=== PATIENT | male | born 1990 | race African-American/Black ===

== ENCOUNTER 2017-10-05 14:55 | Inpatient (IN) | payer SELFPAY ==
[2017-10-05] MEDS ORDERED: ONDANSETRON 4 MG TAB.RAPDIS PO ONE (15:52)
[2017-10-05] MEDS ORDERED: NORMAL SALINE 1000 ML 1,000 ML IV ONE ×2 (16:02→18:41)
[2017-10-05] MEDS ORDERED: FAMOTIDINE INJ/PF 20 MG/2 ML SDV IV ONE (16:02)
--- NOTE | 2017-10-05 16:04 | ER Document Report ---
ED GI/ - General Chief Complaint: Nausea/Vomiting Stated Complaint: FLU LIKE SYMPTOMS Time Seen by Provider: 10/05/17 15:42 Notes: The patient is a 27-year-old male who presents with nausea and vomiting for the past 3 days. He is also feeling a burning sensation after vomiting. 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 Patient denies hematemesis, diarrhea, constipation, abdominal pain, fevers, urinary symptoms, chest pain or shortness of breath. TRAVEL OUTSIDE OF THE [place] IN LAST 30 DAYS: No - Related Data Allergies/Adverse Reactions: No Known Allergies Allergy (Verified 10/05/17 15:08) Past Medical History - General Information source: Patient - Social History Smoking Status: Never Smoker Chew tobacco use (# tins/day): No Frequency of alcohol use: None Drug Abuse: None Family History: Reviewed & Not Pertinent Patient has suicidal ideation: No Patient has homicidal ideation: No Pulmonary Medical History: Reports: Hx Asthma Renal/ Medical History: Denies: Hx Peritoneal Dialysis - Immunizations Hx Diphtheria, Pertussis, Tetanus Vaccination: Yes Review of Systems - Review of Systems Notes: REVIEW OF SYSTEMS: CONSTITUTIONAL: -fevers, -chills EENT: -eye pain, -difficulty swallowing, -nasal congestion CARDIOVASCULAR:-chest pain, -syncope. RESPIRATORY: -cough, -SOB GASTROINTESTINAL: -abdominal pain, +nausea, +vomiting, -diarrhea GENITOURINARY: -dysuria, -hematuria MUSCULOSKELETAL: -back pain, -neck pain SKIN: -rash or skin lesions. HEMATOLOGIC: -easy bruising or bleeding. LYMPHATIC: -swollen, enlarged glands. NEUROLOGICAL: -altered mental status or loss of consciousness, -headache, - neurologic symptoms PSYCHIATRIC: -anxiety, -depression. ALL OTHER SYSTEMS REVIEWED AND NEGATIVE. Physical Exam - Vital signs Vitals: Temp Pulse Resp BP Pulse Ox 97.7 F 127 H 16 127/74 H 98 10/05/17 15:07 10/05/17 15:07 10/05/17 15:07 10/05/17 15:07 10/05/17 15:07 - Notes Notes: PHYSICAL EXAMINATION: GENERAL: Well-appearing, well-nourished and in no acute distress. HEAD: Atraumatic, normocephalic. EYES: Pupils equal round and reactive to light, extraocular movements intact, sclera anicteric, conjunctiva are normal. ENT: nares patent, oropharynx clear without exudates. Moist mucous membranes. NECK: Normal range of motion, supple without lymphadenopathy LUNGS: Breath sounds clear to auscultation bilaterally and equal. No wheezes rales or rhonchi. HEART: Tachycardia. ABDOMEN: Soft, nontender, normoactive bowel sounds. No guarding, no rebound. No masses appreciated. EXTREMITIES: Normal range of motion, no pitting or edema. No cyanosis. NEUROLOGICAL: Cranial nerves grossly intact. Normal speech, normal gait. Normal sensory and motor exams. PSYCH: Normal mood, normal affect. SKIN: Warm, Dry, normal turgor, no rashes or lesions noted. Course - Re-evaluation Re-evalutation: 10/05/17 17:26 Call from lab. Glucose is 600 and CO2 is 8. Pt has new-onset DKA on labs and urine. Insulin gtt started. Patient will be moved to the main ER for further evaluation and treatment. I have greeted and performed a rapid initial assessment of this patient. A comprehensive ED assessment and evaluation of the patient, analysis of test results and completion of the medical decision making process will be conducted by additional ED providers. - Vital Signs Vital signs: Temp Pulse Resp BP Pulse Ox 97.7 F 127 H 16 127/74 H 98 10/05/17 15:07 10/05/17 15:07 10/05/17 15:07 10/05/17 15:07 10/05/17 15:07 - Laboratory Result Diagrams: 10/05/17 16:27 10/05/17 16:27 Laboratory results interpreted by me: 10/05/17 10/05/17 10/05/17 16:09 16:27 16:27 WBC 10.8 H RBC 5.78 H Seg Neutrophils % 89.3 H Lymphocytes % 6.1 L Absolute Neutrophils 9.7 H Potassium 5.2 H Chloride 92 L Carbon Dioxide 8 L* Anion Gap 39 H BUN 28 H Creatinine 1.90 H Est GFR ( Amer) 51 L Est GFR (Non-Af Amer) 42 L Glucose 658 H* Direct Bilirubin 0.6 H AST 178 H ALT 323 H Total Protein 9.5 H Albumin 5.4 H Urine Protein 30 H Urine Glucose (UA) >=500 H Urine Ketones 80 H Urine Blood MODERATE H Discharge - Discharge Clinical Impression: DKA (diabetic ketoacidoses) Condition: Stable Disposition: ADMITTED INPATIENT
[2017-10-05 16:41] LABS: ABSOLUTE LYMPHOCYTES (AUTO) 0.7 10^3/uL (0.5-4.7); ABSOLUTE MONOCYTES (AUTO) 0.5 10^3/uL (0.1-1.4); ABSOLUTE NEUT (AUTO) 9.7 10^3/uL (1.7-8.2); BASOPHILS % (AUTO) 0.3 % (0-2); HEMATOCRIT 50.9 % (37.9-51.0); HEMOGLOBIN 16.6 g/dL (13.5-17.0); HGB HCT DIFFERENCE -1.1; LYMPHOCYTES % (AUTO) 6.1 % (13-45); MEAN CORPUSCULAR HEMOGLOBIN 28.6 pg (27.0-33.4); MEAN CORPUSCULAR HGB CONC 32.5 g/dL (32.0-36.0); MEAN CORPUSCULAR VOLUME 88 fl (80-97); MONOCYTES % (AUTO) 4.3 % (3-13); RED BLOOD COUNT 5.78 10^6/uL (4.35-5.55); SEGMENTED NEUTROPHILS % (AUTO) 89.3 % (42-78); WHITE BLOOD COUNT 10.8 10^3/uL (4.0-10.5)
[2017-10-05 17:05] LABS: ALANINE AMINOTRANSFERASE 323 U/L (21-72); ALBUMIN 5.4 g/dL (3.5-5.0); ALKALINE PHOSPHATASE 111 U/L (38-126); ASPARTATE AMINO TRANSFERASE 178 U/L (17-59); BILIRUBIN,DIRECT 0.6 mg/dL (0.0-0.4); BILIRUBIN,TOTAL 0.7 mg/dL (0.2-1.3); BLOOD UREA NITROGEN 28 mg/dL (7-20); CALCIUM 9.7 mg/dL (8.4-10.2); CHLORIDE 92 mmol/L (98-107); LIPASE 113.1 U/L (23-300); POTASSIUM 5.2 mmol/L (3.6-5.0); TOTAL PROTEIN 9.5 g/dL (6.3-8.2)
[2017-10-05 17:16] LABS: GLUCOSE 658 mg/dL (75-110)
[2017-10-05 17:21] LABS: SODIUM 138.7 mmol/L (137-145)
[2017-10-05 17:28] LABS: ANION GAP 39 (5-19); CARBON DIOXIDE 8 mmol/L (22-30)
[2017-10-05] MEDS ORDERED: INSULIN REG, HUMAN 100 UNIT/ML 3 ML VIAL (PYX) IV ONE (17:31)
[2017-10-05 17:36] LABS: APPEARANCE,URINE CLEAR; BILIRUBIN,URINE NEGATIVE (NEGATIVE); GLUCOSE, URINE >=500 mg/dL (NEGATIVE); KETONES,URINE 80 mg/dL (NEGATIVE); LEUKOCYTE ESTERASE,URINE NEGATIVE (NEGATIVE); NITRITE,URINE NEGATIVE (NEGATIVE); PROTEIN,URINE 30 mg/dL (NEGATIVE); URINE SPECIFIC GRAVITY 1.026; UROBILINOGEN,URINE NEGATIVE mg/dL (<2.0)
[2017-10-05] MEDS: NORMAL SALINE 1000 ML 1,000 ML IV PRN ×2 (17:36→17:54)
--- NOTE | 2017-10-05 17:49 | ER Document Report ---
ED General - General Chief Complaint: Nausea/Vomiting Stated Complaint: FLU LIKE SYMPTOMS Time Seen by Provider: 10/05/17 15:42 Mode of Arrival: Ambulatory Information source: Patient Notes: 27-year-old male with no previous past medical history presents with complaints of increased thirst urination generalized malaise. Patient believes he has a sore throat. Notes symptoms started yesterday TRAVEL OUTSIDE OF THE [place] IN LAST 30 DAYS: No - HPI Onset: Yesterday Onset/Duration: Sudden Quality of pain: Achy Severity: Mild Pain Level: 1 Associated symptoms: Body/muscle aches, Nausea, Vomiting Exacerbated by: Denies Relieved by: Denies Similar symptoms previously: No Recently seen / treated by doctor: No - Related Data Allergies/Adverse Reactions: No Known Allergies Allergy (Verified 10/05/17 15:08) Home Medications: Current Home Medications No Home Medications 10/05/17 [History] Past Medical History - General Information source: Patient - Social History Smoking Status: Never Smoker Cigarette use (# per day): No Chew tobacco use (# tins/day): No Smoking Education Provided: No Frequency of alcohol use: None Drug Abuse: None Family History: Reviewed & Not Pertinent Patient has suicidal ideation: No Patient has homicidal ideation: No Pulmonary Medical History: Reports: Hx Asthma Renal/ Medical History: Denies: Hx Peritoneal Dialysis - Immunizations Hx Diphtheria, Pertussis, Tetanus Vaccination: Yes Review of Systems - Review of Systems Notes: REVIEW OF SYSTEMS: CONSTITUTIONAL : Denies fever, chills, or sweats. Denies recent illness. Admits to increased thirst EENT: Denies eye, ear, throat, or mouth pain or symptoms. Denies nasal or sinus congestion or discharge. Denies throat, tongue, or mouth swelling or difficulty swallowing. CARDIOVASCULAR: Denies chest pain. Denies palpitations or racing or irregular heart beat. Denies ankle edema. RESPIRATORY: Denies cough, cold, or chest congestion. Denies shortness of breath, difficulty breathing, or wheezing. GASTROINTESTINAL: D admits nausea vomiting GENITOURINARY: Admits to increased urination MUSCULOSKELETAL: Denies back or neck pain or stiffness. Denies joint pain or swelling. SKIN: Denies rash, lesions or sores. HEMATOLOGIC : Denies easy bruising or bleeding. LYMPHATIC: Denies swollen, enlarged glands. NEUROLOGICAL: Denies confusion or altered mental status. Denies passing out or loss of consciousness. Denies dizziness or lightheadedness. Denies headache. Denies weakness or paralysis or loss of use of either side. Denies problems with gait or speech. Denies sensory loss, numbness, or tingling. Denies seizures. PSYCHIATRIC: Denies anxiety or stress. Denies depression, suicidal ideation, or homicidal ideation. ALL OTHER SYSTEMS REVIEWED AND NEGATIVE. Dictation was performed using [employer] voice recognition software PHYSICAL EXAMINATION: GENERAL: Well-appearing, well-nourished and in no acute distress. HEAD: Atraumatic, normocephalic. EYES: Pupils equal round and reactive to light, extraocular movements intact, sclera anicteric, conjunctiva are normal. ENT: Nares patent, oropharynx clear without exudates. Moist mucous membranes. NECK: Normal range of motion, supple without lymphadenopathy LUNGS: Breath sounds clear to auscultation bilaterally and equal. No wheezes rales or rhonchi. HEART: Tachycardia ABDOMEN: Soft, nontender, nondistended abdomen. No guarding, no rebound. No masses appreciated. Musculoskeletal: Normal range of motion, no pitting or edema. No cyanosis. NEUROLOGICAL: Cranial nerves grossly intact. Normal speech, normal gait. Normal sensory, motor exams PSYCH: Normal mood, normal affect. SKIN: Warm, Dry, normal turgor, no rashes or lesions noted. Physical Exam - Vital signs Vitals: Temp Pulse Resp BP Pulse Ox 97.7 F 127 H 16 127/74 H 98 10/05/17 15:07 10/05/17 15:07 10/05/17 15:07 10/05/17 15:07 10/05/17 15:07 Course - Re-evaluation Re-evalutation: 10/06/17 00:25 Patient is a new onset diabetic who is in DiaBeta ketoacidosis. He was given IV fluids was started on insulin drip, patient was admitted to the hospitalist service for further care - Vital Signs Vital signs: Temp Pulse Resp BP Pulse Ox 99.5 F 103 H 46 H 127/83 H 93 10/05/17 20:54 10/05/17 20:54 10/05/17 21:00 10/05/17 20:54 10/05/17 21:00 - Laboratory Result Diagrams: 10/05/17 16:27 10/05/17 22:40 Laboratory results interpreted by me: 10/05/17 10/05/17 10/05/17 16:09 16:27 16:27 WBC 10.8 H RBC 5.78 H Seg Neutrophils % 89.3 H Lymphocytes % 6.1 L Absolute Neutrophils 9.7 H Potassium 5.2 H Chloride 92 L Carbon Dioxide 8 L* Anion Gap 39 H BUN 28 H Creatinine 1.90 H Est GFR ( Amer) 51 L Est GFR (Non-Af Amer) 42 L Glucose 658 H* Direct Bilirubin 0.6 H AST 178 H ALT 323 H Total Protein 9.5 H Albumin 5.4 H Urine Protein 30 H Urine Glucose (UA) >=500 H Urine Ketones 80 H Urine Blood MODERATE H Critical Care Note - Critical Care Note Total time excluding time spent on procedures (mins): 46 Comments: 46 minutes of critical care time spent in direct contact evaluating and reevaluating the patient, treating symptoms, reviewing labs and studies and speaking with family and consultants excluding any procedures Discharge - Discharge Clinical Impression: Elevated LFTs, Acute renal injury due to hypovolemia, Dehydration, Metabolic acidosis DKA (diabetic ketoacidoses) Qualifiers: Diabetes mellitus type: other specified (including ADA) Diabetes mellitus complication detail: without coma Qualified Code(s): E13.10 - Other specified diabetes mellitus with ketoacidosis without coma Condition: Stable Disposition: ADMITTED INPATIENT Admitting Provider: Hospitalist Unit Admitted: [facility]
[2017-10-05] MEDS ORDERED: ONDANSETRON HCL INJ/PF 4 MG/2 ML SDV IV PRN (18:28)
[2017-10-05] MEDS ORDERED: NORMAL SALINE 1000 ML 1,000 ML IV PRN ×2 (18:28→23:11)
[2017-10-05] MEDS ORDERED: DEXTROSE 40% GEL 15 GM TUBE PO PRN ×4 (18:35→18:38)
[2017-10-05] MEDS ORDERED: GLUCAGON,HUMAN RECOMB 1 MG INJ IM PRN ×2 (18:35→18:38)
[2017-10-05] MEDS ORDERED: DEXTROSE 50%-WATER 25 GM/50 ML DISP.SYRIN IV PRN ×4 (18:35→18:38)
[2017-10-05] MEDS ORDERED: NORMAL SALINE 100 ML with INSULIN REGULAR, HUMAN 100 UNIT IV PRN ×2 (18:38)
--- NOTE | 2017-10-05 18:50 | PDOC H&P ---
History of Present Illness Admission Date/PCP: 10/05/17 18:28 Patient complains of: Fatigue History of Present Illness: ANAIS EDUARDO is a 27 year old male presents with fatigue for several days. Pt states that he has had poor appetite for several days. Pt states that he has been thirsty and drinking more. Pt states that his mouth has been dry. Pt states that he has not been urinating much. Pt denies chest pain, shortness of breath. Pt does admit to fever. Past Medical History Pulmonary Medical History: Reports: Asthma Social History Information Source: Patient Lives with: Family Smoking Status: Never Smoker Drugs: None Family History Family History: DM, Hyperlipidemia, Hypertension Parental Family History Reviewed: Yes Children Family History Reviewed: Yes Sibling(s) Family History Reviewed.: Yes Medication/Allergy Home Medications: Acetaminophen with Codeine [Tylenol with Codeine #3 Tablet] 1 tab PO Q4 PRN #30 tab 10/28/13 Ibuprofen [Motrin 600 mg Tablet] 600 mg PO Q8HP PRN #30 tablet 10/28/13 Allergies/Adverse Reactions: No Known Allergies Allergy (Verified 10/05/17 15:08) Review of Systems Constitutional: PRESENT: fever(s), weakness. ABSENT: as per HPI, anorexia, chills, fatigue, headache(s), night sweats, weight gain, weight loss, other Eyes: ABSENT: visual disturbances Ears: ABSENT: hearing changes Cardiovascular: ABSENT: chest pain, dyspnea on exertion, edema, orthropnea, palpitations Respiratory: ABSENT: cough, hemoptysis Gastrointestinal: ABSENT: abdominal pain, constipation, diarrhea, hematemesis, hematochezia, nausea, vomiting Genitourinary: ABSENT: dysuria, hematuria Musculoskeletal: ABSENT: joint swelling Integumentary: ABSENT: rash, wounds Neurological: ABSENT: abnormal gait, abnormal speech, confusion, dizziness, focal weakness, syncope Psychiatric: ABSENT: anxiety, depression, homidical ideation, suicidal ideation Endocrine: ABSENT: cold intolerance, heat intolerance, polydipsia, polyuria Hematologic/Lymphatic: ABSENT: easy bleeding, easy bruising Physical Exam Vital Signs: Temp Pulse Resp BP Pulse Ox 97.7 F 127 H 16 127/74 H 98 10/05/17 15:07 10/05/17 15:07 10/05/17 15:07 10/05/17 15:07 10/05/17 15:07 General appearance: PRESENT: no acute distress, well-developed, well-nourished, other - Dry mouth. Head exam: PRESENT: atraumatic, normocephalic Eye exam: PRESENT: conjunctiva pink, EOMI, PERRLA. ABSENT: scleral icterus Ear exam: PRESENT: normal external ear exam Mouth exam: PRESENT: dry mucosa Neck exam: ABSENT: carotid bruit, JVD, lymphadenopathy, thyromegaly Respiratory exam: PRESENT: clear to auscultation heraclio. ABSENT: rales, rhonchi, wheezes Cardiovascular exam: PRESENT: RRR, tachycardia. ABSENT: diastolic murmur, rubs , systolic murmur Pulses: PRESENT: normal dorsalis pedis pul Vascular exam: PRESENT: normal capillary refill GI/Abdominal exam: PRESENT: normal bowel sounds, soft. ABSENT: distended, guarding, mass, organolmegaly, rebound, tenderness Rectal exam: PRESENT: deferred Extremities exam: PRESENT: full ROM. ABSENT: calf tenderness, clubbing, pedal edema Neurological exam: PRESENT: alert, awake, oriented to person, oriented to place , oriented to time, oriented to situation, CN II-XII grossly intact. ABSENT: motor sensory deficit Psychiatric exam: PRESENT: appropriate affect, normal mood. ABSENT: homicidal ideation, suicidal ideation Skin exam: PRESENT: dry, intact, warm. ABSENT: cyanosis, rash Assessment & Plan - Diagnosis (1) DKA (diabetic ketoacidoses) Qualifiers: Diabetes mellitus type: other specified (including ADA) Is this a current diagnosis for this admission?: Yes Plan: Most likely secondary to New Dx Type 1: Will place on IVF and Insulin IV. Will check BMP Q4 hours. (2) Dehydration Is this a current diagnosis for this admission?: Yes Plan: Will give IVFs (3) Acute renal injury due to hypovolemia Is this a current diagnosis for this admission?: Yes Plan: Secondary to Dehydration: Will give IVFs (4) Metabolic acidosis Is this a current diagnosis for this admission?: Yes Plan: Secondary to DKA: Will give IVFs and insulin. (5) Elevated LFTs Is this a current diagnosis for this admission?: Yes Plan: Will check Hepatitis profile, U/s of liver. Will check LFTs in am. (6) DVT prophylaxis Is this a current diagnosis for this admission?: Yes Plan: SCDs - Time Time Spent: 30 to 50 Minutes Anticipated discharge: Home
[2017-10-05 19:02] LABS: VENOUS BLOOD BASE EXCESS -16.5 mmol/L; VENOUS BLOOD HCO3 12.3 mmol/L (20-32); VENOUS BLOOD PCO2 39.4 mmHg (35-63)
[2017-10-05 19:11] LABS: VENOUS BLOOD PH 7.11 (7.30-7.42)
[2017-10-05 21:04] LABS: BLOOD UREA NITROGEN 25 mg/dL (7-20); CALCIUM 9.3 mg/dL (8.4-10.2); CHLORIDE 103 mmol/L (98-107); CREATININE RESULT 1.29 mg/dL (0.52-1.25); POTASSIUM 5.2 mmol/L (3.6-5.0)
[2017-10-05 21:15] LABS: SODIUM 144.2 mmol/L (137-145)
[2017-10-05 21:18] LABS: ANION GAP 31 (5-19)
[2017-10-05] MEDS: ACETAMINOPHEN 325 MG TABLET PO PRN (21:22)
[2017-10-05] MEDS: FAMOTIDINE 20 MG TABLET PO SCH (21:23)
[2017-10-05 21:24] LABS: CARBON DIOXIDE 10 mmol/L (22-30); GLUCOSE 426 mg/dL (75-110)
[2017-10-05 22:14] LABS: APPEARANCE,URINE CLEAR; BILIRUBIN,URINE NEGATIVE (NEGATIVE); GLUCOSE, URINE >=500 mg/dL (NEGATIVE); KETONES,URINE 80 mg/dL (NEGATIVE); LEUKOCYTE ESTERASE,URINE NEGATIVE (NEGATIVE); NITRITE,URINE NEGATIVE (NEGATIVE); PROTEIN,URINE 30 mg/dL (NEGATIVE); URINE SPECIFIC GRAVITY 1.026; UROBILINOGEN,URINE NEGATIVE mg/dL (<2.0)
[2017-10-05 23:04] LABS: BLOOD UREA NITROGEN 22 mg/dL (7-20); CALCIUM 9.1 mg/dL (8.4-10.2); CARBON DIOXIDE 12 mmol/L (22-30); CREATININE RESULT 1.22 mg/dL (0.52-1.25); GLUCOSE 312 mg/dL (75-110); POTASSIUM 4.5 mmol/L (3.6-5.0)
[2017-10-05 23:30] LABS: ANION GAP 24 (5-19); CHLORIDE 107 mmol/L (98-107); SODIUM 143.2 mmol/L (137-145)
[2017-10-05] MEDS ORDERED: INFLUENZA ADLT QUAD (36MOS+) 2017-18 VAC 0.5 ML SYR IM PRN (23:38)
[2017-10-06] MEDS: POTASSI CL 20 MEQ/D5-1/2NS 1L 1,000 ML IV PRN ×2 (00:27→05:54)
[2017-10-06] MEDS: ACETAMINOPHEN 325 MG TABLET PO PRN (02:43)
[2017-10-06] MEDS ORDERED: INSULIN REG, HUMAN 100 UNIT/ML 3 ML VIAL (PYX) ONE (02:53)
[2017-10-06 03:38] LABS: ANION GAP 15 (5-19); BLOOD UREA NITROGEN 21 mg/dL (7-20); CALCIUM 9.1 mg/dL (8.4-10.2); CARBON DIOXIDE 21 mmol/L (22-30); CHLORIDE 110 mmol/L (98-107); CREATININE RESULT 1.12 mg/dL (0.52-1.25); GLUCOSE 94 mg/dL (75-110); SODIUM 146.1 mmol/L (137-145)
[2017-10-06 07:22] LABS: HEMATOCRIT 43.5 % (37.9-51.0); HEMOGLOBIN 14.6 g/dL (13.5-17.0); HGB HCT DIFFERENCE 0.3; MEAN CORPUSCULAR HEMOGLOBIN 28.5 pg (27.0-33.4); MEAN CORPUSCULAR HGB CONC 33.6 g/dL (32.0-36.0); MEAN CORPUSCULAR VOLUME 85 fl (80-97); RED BLOOD COUNT 5.14 10^6/uL (4.35-5.55); RED CELL DISTRIBUTION WIDTH 13.6 % (11.5-14.0)
[2017-10-06 07:32] LABS: Direct HDL 30 mg/dL (>40); MAGNESIUM 2.5 mg/dL (1.6-2.3); PHOSPHORUS 2.1 mg/dL (2.5-4.5); TRIGLYCERIDES 124 mg/dL (<150)
[2017-10-06 07:34] LABS: ALANINE AMINOTRANSFERASE 239 U/L (21-72); ALBUMIN 4.4 g/dL (3.5-5.0); ALKALINE PHOSPHATASE 75 U/L (38-126); ANION GAP 15 (5-19); ASPARTATE AMINO TRANSFERASE 85 U/L (17-59); BILIRUBIN,DIRECT 0.5 mg/dL (0.0-0.4); BILIRUBIN,TOTAL 0.6 mg/dL (0.2-1.3); BLOOD UREA NITROGEN 18 mg/dL (7-20); CALCIUM 9.5 mg/dL (8.4-10.2); CARBON DIOXIDE 23 mmol/L (22-30); CHLORIDE 108 mmol/L (98-107); CREATININE RESULT 1.05 mg/dL (0.52-1.25); GLUCOSE 76 mg/dL (75-110); POTASSIUM 3.8 mmol/L (3.6-5.0); SODIUM 145.7 mmol/L (137-145); TOTAL PROTEIN 7.6 g/dL (6.3-8.2)
[2017-10-06 07:43] LABS: DIRECT LDL 136 mg/dL (<100)
[2017-10-06] MEDS ORDERED: PHOSPHORUS #1 250 MG TABLET PO ONE (07:50)
[2017-10-06 08:03] LABS: THYROID STIMULATING HORMONE 0.22 uIU/mL (0.47-4.68)
[2017-10-06 08:15] LABS: APPEARANCE,URINE SLIGHTLY-CLOUDY; BILIRUBIN,URINE NEGATIVE (NEGATIVE); GLUCOSE, URINE 50 mg/dL (NEGATIVE); KETONES,URINE 20 mg/dL (NEGATIVE); LEUKOCYTE ESTERASE,URINE NEGATIVE (NEGATIVE); NITRITE,URINE NEGATIVE (NEGATIVE); PROTEIN,URINE 100 mg/dL (NEGATIVE); UROBILINOGEN,URINE NEGATIVE mg/dL (<2.0)
[2017-10-06] MEDS ORDERED: LISINOPRIL 10 MG TABLET PO ONE (08:19)
--- NOTE | 2017-10-06 08:30 | PDOC PROGRESS REPORT ---
Subjective Progress Note for:: 10/06/17 Subjective:: Pt states that he is doing ok this morning. Pt states that he is hoping to be able to go home. Nursing states that pt blood glucose was 70's and insulin was placed on hold. Physical Exam Vital Signs: Temp Pulse Resp BP Pulse Ox 98.3 F 98 18 149/92 H 100 10/06/17 07:44 10/06/17 07:44 10/06/17 07:44 10/06/17 07:44 10/06/17 07:44 Intake & Output 10/05/17 10/06/17 10/07/17 06:59 06:59 06:59 Intake Total 2378 Output Total 1210 Balance 1168 Weight 88 kg General appearance: PRESENT: no acute distress, well-developed, well-nourished Head exam: PRESENT: atraumatic, normocephalic Eye exam: PRESENT: conjunctiva pink, EOMI, PERRLA. ABSENT: scleral icterus Ear exam: PRESENT: normal external ear exam Mouth exam: PRESENT: moist, tongue midline Neck exam: ABSENT: carotid bruit, JVD, lymphadenopathy, thyromegaly Respiratory exam: PRESENT: clear to auscultation heraclio. ABSENT: rales, rhonchi, wheezes Cardiovascular exam: PRESENT: RRR. ABSENT: diastolic murmur, rubs, systolic murmur Pulses: PRESENT: normal dorsalis pedis pul Vascular exam: PRESENT: normal capillary refill GI/Abdominal exam: PRESENT: normal bowel sounds, soft. ABSENT: distended, guarding, mass, organolmegaly, rebound, tenderness Rectal exam: PRESENT: deferred Extremities exam: PRESENT: full ROM. ABSENT: calf tenderness, clubbing, pedal edema Neurological exam: PRESENT: alert, awake, oriented to person, oriented to place , oriented to time, oriented to situation, CN II-XII grossly intact. ABSENT: motor sensory deficit Psychiatric exam: PRESENT: appropriate affect, normal mood. ABSENT: homicidal ideation, suicidal ideation Skin exam: PRESENT: dry, intact, warm. ABSENT: cyanosis, rash Results Laboratory Results: 10/06/17 06:45 10/06/17 07:01 10/05/17 10/05/17 10/05/17 18:40 20:18 21:25 WBC RBC Hgb Hct MCV MCH MCHC RDW Plt Count VBG pH 7.11 L* VBG pCO2 39.4 VBG HCO3 12.3 L VBG Base Excess -16.5 Sodium 144.2 Potassium 5.2 H Chloride 103 Carbon Dioxide 10 L* Anion Gap 31 H BUN 25 H Creatinine 1.29 H Est GFR ( Amer) > 60 Est GFR (Non-Af Amer) > 60 Glucose 426 H* Calcium 9.3 Phosphorus Magnesium Total Bilirubin AST ALT Alkaline Phosphatase Total Protein Albumin Triglycerides Cholesterol LDL Cholesterol Direct VLDL Cholesterol HDL Cholesterol TSH Free T4 Urine Color STRAW Urine Appearance CLEAR Urine pH 5.0 Ur Specific [place] 1.026 Urine Protein 30 H Urine Glucose (UA) >=500 H Urine Ketones 80 H Urine Blood MODERATE H Urine Nitrite NEGATIVE Ur Leukocyte Esterase NEGATIVE Urine WBC (Auto) 1 Urine RBC (Auto) 1 10/05/17 10/06/17 10/06/17 22:40 03:06 06:45 WBC 9.0 RBC 5.14 Hgb 14.6 Hct 43.5 MCV 85 MCH 28.5 MCHC 33.6 RDW 13.6 Plt Count 258 VBG pH VBG pCO2 VBG HCO3 VBG Base Excess Sodium 143.2 146.1 H Potassium 4.5 4.0 Chloride 107 110 H Carbon Dioxide 12 L 21 L Anion Gap 24 H 15 BUN 22 H 21 H Creatinine 1.22 1.12 Est GFR ( Amer) > 60 > 60 Est GFR (Non-Af Amer) > 60 > 60 Glucose 312 H 94 Calcium 9.1 9.1 Phosphorus Magnesium Total Bilirubin AST ALT Alkaline Phosphatase Total Protein Albumin Triglycerides Cholesterol LDL Cholesterol Direct VLDL Cholesterol HDL Cholesterol TSH Free T4 Urine Color Urine Appearance Urine pH Ur Specific [place] Urine Protein Urine Glucose (UA) Urine Ketones Urine Blood Urine Nitrite Ur Leukocyte Esterase Urine WBC (Auto) Urine RBC (Auto) 10/06/17 10/06/17 10/06/17 07:01 07:01 07:01 WBC RBC Hgb Hct MCV MCH MCHC RDW Plt Count VBG pH VBG pCO2 VBG HCO3 VBG Base Excess Sodium 145.7 H Potassium 3.8 Chloride 108 H Carbon Dioxide 23 Anion Gap 15 BUN 18 Creatinine 1.05 Est GFR ( Amer) > 60 Est GFR (Non-Af Amer) > 60 Glucose 76 Calcium 9.5 Phosphorus 2.1 L Magnesium 2.5 H Total Bilirubin 0.6 AST 85 H ALT 239 H Alkaline Phosphatase 75 Total Protein 7.6 Albumin 4.4 Triglycerides 124 Cholesterol 201.60 H LDL Cholesterol Direct 136 H VLDL Cholesterol 25.0 HDL Cholesterol 30 L TSH 0.22 L Free T4 1.12 Urine Color Urine Appearance Urine pH Ur Specific [place] Urine Protein Urine Glucose (UA) Urine Ketones Urine Blood Urine Nitrite Ur Leukocyte Esterase Urine WBC (Auto) Urine RBC (Auto) 10/06/17 08:00 WBC RBC Hgb Hct MCV MCH MCHC RDW Plt Count VBG pH VBG pCO2 VBG HCO3 VBG Base Excess Sodium Potassium Chloride Carbon Dioxide Anion Gap BUN Creatinine Est GFR ( Amer) Est GFR (Non-Af Amer) Glucose Calcium Phosphorus Magnesium Total Bilirubin AST ALT Alkaline Phosphatase Total Protein Albumin Triglycerides Cholesterol LDL Cholesterol Direct VLDL Cholesterol HDL Cholesterol TSH Free T4 Urine Color YELLOW Urine Appearance SLIGHTLY-CLOUDY Urine pH 6.0 Ur Specific [place] 1.030 Urine Protein 100 H Urine Glucose (UA) 50 H Urine Ketones 20 H Urine Blood SMALL H Urine Nitrite NEGATIVE Ur Leukocyte Esterase NEGATIVE Urine WBC (Auto) 6 Urine RBC (Auto) 2 10/06/17 07:01 Creatine Kinase 372 H Assessment & Plan - Diagnosis (1) DKA (diabetic ketoacidoses) Qualifiers: Diabetes mellitus type: other specified (including ADA) Diabetes mellitus complication detail: without coma Qualified Code(s): E13.10 - Other specified diabetes mellitus with ketoacidosis without coma Is this a current diagnosis for this admission?: Yes Plan: DM type Unknown: Will transition pt to Lantus 35 units QAM and Humulog 8 units SC with meals. Will arrange out patient follow. (2) Dehydration Is this a current diagnosis for this admission?: Yes Plan: Will continue IVFs (3) Acute renal injury due to hypovolemia Is this a current diagnosis for this admission?: Yes Plan: Secondary to Dehydration: Will continue IVFs. (4) Hypernatremia Is this a current diagnosis for this admission?: Yes Plan: Will encourage increased PO fluids (5) Hypertension Qualifiers: Hypertension type: essential hypertension Qualified Code(s): I10 - Essential (primary) hypertension Is this a current diagnosis for this admission?: Yes Plan: Will place on Lisinopril. (6) Metabolic acidosis Is this a current diagnosis for this admission?: Yes Plan: Secondary to DKA: GAP resolved. Will monitor. (7) Elevated LFTs Is this a current diagnosis for this admission?: Yes Plan: LFTs trending downward. Will continue to monitor. U/S of Liver pending. Hepatitis Panel pending. (8) Obesity (BMI 30.0-34.9) Is this a current diagnosis for this admission?: Yes Plan: Encourage dietary changes. (9) Hyperlipidemia Qualifiers: Hyperlipidemia type: other hyperlipidemia Qualified Code(s): E78.4 - Other hyperlipidemia Is this a current diagnosis for this admission?: Yes Plan: Will place on Statin. (10) DVT prophylaxis Is this a current diagnosis for this admission?: Yes - Time Time Spent with patient: 15-24 minutes
--- NOTE | 2017-10-06 08:49 | RADIOLOGY REPORT (SQ) ---
EXAM DESCRIPTION: U/S ABDOMEN COMPLETE W/O DOP COMPLETED DATE/TIME: 10/06/2017 6:21 am REASON FOR STUDY: elevated LFTs COMPARISON: None. TECHNIQUE: Dynamic and static grayscale images acquired of the abdomen and recorded on PACS. Additio nal selected color Doppler and spectral images recorded. LIMITATIONS: Midline bowel gas, body habitus FINDINGS: PANCREAS: Midline pancreas unremarkable LIVER: Normal size, diffusely increased in echogenicity and difficult to penetrate with the ultrasoun d energy from diffuse fatty infiltration. No discrete masses LIVER VASCULATURE: Normal directional flow of the main portal vein and hepatic veins. GALLBLADDER: No stones. Normal wall thickness. No pericholecystic fluid. ULTRASOUND-DETECTED XIONG'S SIGN: Negative. INTRAHEPATIC DUCTS AND COMMON DUCT: No intrahepatic biliary ductal dilatation extrahepatic bile ducts difficult to visualize INFERIOR VENA CAVA: Normal flow. AORTA: No aneurysm. RIGHT KIDNEY: 12 cm in length. Normal echogenicity. 2 cm cyst right lower pole kidney. No solid or suspicious masses. No hydronephrosis. No calcifications. LEFT KIDNEY: 11 cm in length Normal echogenicity. No solid or suspicious masses. No hydronephr osis. No calcifications. SPLEEN: Normal size. No solid masses. PERITONEAL AND PLEURAL SPACES: No ascites or effusions. OTHER: No other significant finding. IMPRESSION: Normal size liver with diffuse increased echogenicity from fatty infiltration. TECHNICAL DOCUMENTATION: JOB ID: [id number] [employer]- All Rights Reserved
--- NOTE | 2017-10-06 09:28 | EKG REPORT ---
SEVERITY:- ABNORMAL ECG - SINUS RHYTHM NONSPECIFIC T ABNORMALITIES, INFERIOR LEADS : Confirmed by: Gurwinder Peguero 06-Oct-2017 09:27:16
[2017-10-06] MEDS ORDERED: LISINOPRIL 10 MG TABLET PO SCH (10:00)
[2017-10-06] MEDS: PHOSPHORUS #1 250 MG TABLET PO SCH ×2 (11:12→15:26)
[2017-10-06] MEDS: FAMOTIDINE 20 MG TABLET PO SCH ×2 (11:13→22:03)
[2017-10-06 11:36] LABS: ANION GAP 18 (5-19); BLOOD UREA NITROGEN 16 mg/dL (7-20); CALCIUM 9.2 mg/dL (8.4-10.2); CARBON DIOXIDE 17 mmol/L (22-30); CHLORIDE 105 mmol/L (98-107); CREATININE RESULT 0.96 mg/dL (0.52-1.25); GLUCOSE 325 mg/dL (75-110); POTASSIUM 4.4 mmol/L (3.6-5.0); SODIUM 139.7 mmol/L (137-145)
[2017-10-06] MEDS ORDERED: DEXTROSE 50%-WATER 25 GM/50 ML DISP.SYRIN IV PRN ×2 (12:44)
[2017-10-06] MEDS ORDERED: DEXTROSE 40% GEL 15 GM TUBE PO PRN ×3 (12:44→13:12)
[2017-10-06] MEDS ORDERED: GLUCAGON,HUMAN RECOMB 1 MG INJ IM PRN ×2 (12:44→13:12)
[2017-10-06] MEDS ORDERED: DEXTROSE 40% GEL 15 GM TUBE X 2 PO PRN (13:12)
[2017-10-06] MEDS ORDERED: DEXTROSE 50%-WATER SYRINGE 12.5 GM/25 ML DOSE IV PRN (13:12)
[2017-10-06] MEDS ORDERED: DEXTROSE 50%-WATER SYRINGE 25 GM/50 ML DOSE IV PRN (13:12)
[2017-10-06] MEDS: INSULIN LISPRO 100 UNIT/ML 3 ML VIAL SUBCUT SCH ×2 (13:22→18:20)
[2017-10-06] MEDS: INSULIN LISPRO 100 UNIT/ML 3 ML VIAL SUBCUT PRN ×2 (13:23→22:03)
[2017-10-06 15:49] LABS: ANION GAP 18 (5-19); BLOOD UREA NITROGEN 14 mg/dL (7-20); CALCIUM 9.7 mg/dL (8.4-10.2); CARBON DIOXIDE 19 mmol/L (22-30); CHLORIDE 104 mmol/L (98-107); CREATININE RESULT 0.84 mg/dL (0.52-1.25); GLUCOSE 230 mg/dL (75-110); POTASSIUM 4.1 mmol/L (3.6-5.0); SODIUM 140.5 mmol/L (137-145)
[2017-10-06 19:01] LABS: ANION GAP 19 (5-19); BLOOD UREA NITROGEN 12 mg/dL (7-20); CALCIUM 9.3 mg/dL (8.4-10.2); CARBON DIOXIDE 17 mmol/L (22-30); CHLORIDE 105 mmol/L (98-107); CREATININE RESULT 0.74 mg/dL (0.52-1.25); GLUCOSE 151 mg/dL (75-110); POTASSIUM 3.7 mmol/L (3.6-5.0); SODIUM 141.2 mmol/L (137-145)
[2017-10-06] MEDS: ATORVASTATIN CALCIUM 10 MG TABLET PO SCH (22:03)
[2017-10-06 23:19] LABS: ANION GAP 16 (5-19); BLOOD UREA NITROGEN 14 mg/dL (7-20); CALCIUM 9.4 mg/dL (8.4-10.2); CARBON DIOXIDE 21 mmol/L (22-30); CHLORIDE 101 mmol/L (98-107); CREATININE RESULT 0.89 mg/dL (0.52-1.25); GLUCOSE 206 mg/dL (75-110); POTASSIUM 3.5 mmol/L (3.6-5.0); SODIUM 138.1 mmol/L (137-145)
[2017-10-07 03:15] LABS: BLOOD UREA NITROGEN 12 mg/dL (7-20); CALCIUM 9.1 mg/dL (8.4-10.2); CREATININE RESULT 0.81 mg/dL (0.52-1.25); GLUCOSE 212 mg/dL (75-110)
[2017-10-07 03:32] LABS: ANION GAP 19 (5-19); CARBON DIOXIDE 16 mmol/L (22-30); CHLORIDE 102 mmol/L (98-107); POTASSIUM 3.4 mmol/L (3.6-5.0); SODIUM 137.2 mmol/L (137-145)
[2017-10-07 07:32] LABS: ALANINE AMINOTRANSFERASE 161 U/L (21-72); ALKALINE PHOSPHATASE 72 U/L (38-126); ASPARTATE AMINO TRANSFERASE 46 U/L (17-59); BILIRUBIN,DIRECT 0.4 mg/dL (0.0-0.4); BILIRUBIN,TOTAL 1.1 mg/dL (0.2-1.3); BLOOD UREA NITROGEN 12 mg/dL (7-20); CALCIUM 9.3 mg/dL (8.4-10.2); CARBON DIOXIDE 16 mmol/L (22-30); CHLORIDE 101 mmol/L (98-107); CREATININE RESULT 0.89 mg/dL (0.52-1.25); GLUCOSE 240 mg/dL (75-110); PHOSPHORUS 3.1 mg/dL (2.5-4.5); POTASSIUM 3.8 mmol/L (3.6-5.0); TOTAL PROTEIN 6.8 g/dL (6.3-8.2)
[2017-10-07 07:38] LABS: ANION GAP 22 (5-19)
[2017-10-07] MEDS ORDERED: INSULIN GLARGINE,HUM.REC.ANLOG 1,000 UNIT/10 ML UNIT SUBCUT SCH ×2 (08:00)
--- NOTE | 2017-10-07 08:55 | PDOC PROGRESS REPORT ---
Subjective Progress Note for:: 10/07/17 Subjective:: Pt states that he is feeling better. Pt states that he had a metallic like taste in his mouth yesterday. Pt states that he has a lot of questions about what is going on with him because he has never been sick. Physical Exam Vital Signs: Temp Pulse Resp BP Pulse Ox 98.5 F 105 H 16 125/68 96 10/07/17 07:48 10/07/17 07:48 10/07/17 07:48 10/07/17 07:48 10/07/17 07:48 Intake & Output 10/06/17 10/07/17 10/08/17 06:59 06:59 06:59 Intake Total 2378 1660 Output Total 1210 Balance 1168 1660 Weight 88 kg 89.6 kg General appearance: PRESENT: no acute distress, well-developed, well-nourished Head exam: PRESENT: atraumatic, normocephalic Eye exam: PRESENT: conjunctiva pink, EOMI, PERRLA. ABSENT: scleral icterus Ear exam: PRESENT: normal external ear exam Mouth exam: PRESENT: moist, tongue midline Neck exam: ABSENT: carotid bruit, JVD, lymphadenopathy, thyromegaly Respiratory exam: PRESENT: clear to auscultation heraclio. ABSENT: rales, rhonchi, wheezes Cardiovascular exam: PRESENT: RRR. ABSENT: diastolic murmur, rubs, systolic murmur Pulses: PRESENT: normal dorsalis pedis pul Vascular exam: PRESENT: normal capillary refill GI/Abdominal exam: PRESENT: normal bowel sounds, soft. ABSENT: distended, guarding, mass, organolmegaly, rebound, tenderness Rectal exam: PRESENT: deferred Extremities exam: PRESENT: full ROM. ABSENT: calf tenderness, clubbing, pedal edema Neurological exam: PRESENT: alert, awake, oriented to person, oriented to place , oriented to time, oriented to situation, CN II-XII grossly intact. ABSENT: motor sensory deficit Psychiatric exam: PRESENT: appropriate affect, normal mood. ABSENT: homicidal ideation, suicidal ideation Skin exam: PRESENT: dry, intact, warm. ABSENT: cyanosis, rash Results Laboratory Results: 10/06/17 06:45 10/07/17 06:56 10/06/17 10/06/17 10/06/17 10:45 15:05 18:33 Sodium 139.7 140.5 141.2 Potassium 4.4 4.1 3.7 Chloride 105 104 105 Carbon Dioxide 17 L 19 L 17 L Anion Gap 18 18 19 BUN 16 14 12 Creatinine 0.96 0.84 0.74 Est GFR ( Amer) > 60 > 60 > 60 Est GFR (Non-Af Amer) > 60 > 60 > 60 Glucose 325 H 230 H 151 H Calcium 9.2 9.7 9.3 Phosphorus Total Bilirubin AST ALT Alkaline Phosphatase Total Protein Albumin 10/06/17 10/07/17 10/07/17 22:47 02:49 06:56 Sodium 138.1 137.2 139.0 Potassium 3.5 L 3.4 L 3.8 Chloride 101 102 101 Carbon Dioxide 21 L 16 L 16 L Anion Gap 16 19 22 H BUN 14 12 12 Creatinine 0.89 0.81 0.89 Est GFR ( Amer) > 60 > 60 > 60 Est GFR (Non-Af Amer) > 60 > 60 > 60 Glucose 206 H 212 H 240 H Calcium 9.4 9.1 9.3 Phosphorus 3.1 Total Bilirubin 1.1 AST 46 ALT 161 H Alkaline Phosphatase 72 Total Protein 6.8 Albumin 4.0 10/06/17 07:01 Creatine Kinase 372 H Impressions: Abdomen Ultrasound 10/06/17 00:00 IMPRESSION: Normal size liver with diffuse increased echogenicity from fatty infiltration. Assessment & Plan - Diagnosis (1) DKA (diabetic ketoacidoses) Qualifiers: Diabetes mellitus type: other specified (including ADA) Diabetes mellitus complication detail: without coma Qualified Code(s): E13.10 - Other specified diabetes mellitus with ketoacidosis without coma Is this a current diagnosis for this admission?: Yes Plan: Suspect Newly Dx DM Type 2: Resolving. Pt's gap opened yesterday. Will place on Lantus 45 units with 12 units of Humalog with meals. Will continue to monitor. Pt's blood glucose was 214 this morning. (2) Dehydration Is this a current diagnosis for this admission?: Yes Plan: Will continue IVFs (3) Acute renal injury due to hypovolemia Is this a current diagnosis for this admission?: Yes Plan: Secondary to Dehydration: Will continue IVFs. (4) Hypernatremia Is this a current diagnosis for this admission?: Yes Plan: Resolved. (5) Hypertension Qualifiers: Hypertension type: essential hypertension Qualified Code(s): I10 - Essential (primary) hypertension Is this a current diagnosis for this admission?: Yes Plan: Will increase Lisinopril [address] pt on Metoprolol 12.5mg PO BID. (6) Metabolic acidosis Is this a current diagnosis for this admission?: Yes Plan: Secondary to DKA: Resolving. Will continue to monitor. (7) Elevated LFTs Is this a current diagnosis for this admission?: Yes Plan: Secondary to Fatty Liver Disease: LFTs trending downward. Will continue to monitor. U/S of Liver demonstrating fatty liver disease. Hepatitis Panel pending. (8) Obesity (BMI 30.0-34.9) Is this a current diagnosis for this admission?: Yes Plan: Encourage dietary changes. (9) Hyperlipidemia Qualifiers: Hyperlipidemia type: other hyperlipidemia Qualified Code(s): E78.4 - Other hyperlipidemia Is this a current diagnosis for this admission?: Yes Plan: Will place on Statin. (10) DVT prophylaxis Is this a current diagnosis for this admission?: Yes Plan: SCDs - Time Time Spent with patient: 15-24 minutes Anticipated discharge: Home - Hopefully home tomorrow.
[2017-10-07] MEDS: INSULIN LISPRO 100 UNIT/ML 3 ML VIAL SUBCUT SCH ×2 (10:00→12:37)
[2017-10-07] MEDS: INSULIN GLARGINE,HUM.REC.ANLOG 1,000 UNIT/10 ML UNIT SUBCUT SCH (10:00)
[2017-10-07] MEDS: INSULIN LISPRO 100 UNIT/ML 3 ML VIAL SUBCUT PRN ×3 (10:00→22:47)
[2017-10-07] MEDS: PHOSPHORUS #1 250 MG TABLET PO SCH ×2 (11:02→17:37)
[2017-10-07] MEDS: LISINOPRIL 10 MG TABLET PO SCH (11:02)
[2017-10-07] MEDS: METOPROLOL TARTRATE 25 MG TABLET PO SCH ×2 (11:03→22:48)
[2017-10-07] MEDS: FAMOTIDINE 20 MG TABLET PO SCH ×2 (11:03→22:47)
[2017-10-07 11:10] LABS: BLOOD UREA NITROGEN 14 mg/dL (7-20); CALCIUM 9.6 mg/dL (8.4-10.2); CARBON DIOXIDE 16 mmol/L (22-30); CREATININE RESULT 0.94 mg/dL (0.52-1.25); GLUCOSE 273 mg/dL (75-110); POTASSIUM 3.7 mmol/L (3.6-5.0)
[2017-10-07 11:22] LABS: CHLORIDE 101 mmol/L (98-107); SODIUM 138.2 mmol/L (137-145)
[2017-10-07 11:28] LABS: ANION GAP 21 (5-19)
[2017-10-07] MEDS ORDERED: INSULIN LISPRO 100 UNIT/ML 3 ML VIAL SUBCUT ONE (13:45)
[2017-10-07 15:35] LABS: ANION GAP 17 (5-19); BLOOD UREA NITROGEN 18 mg/dL (7-20); CALCIUM 9.5 mg/dL (8.4-10.2); CARBON DIOXIDE 19 mmol/L (22-30); CHLORIDE 103 mmol/L (98-107); CREATININE RESULT 0.94 mg/dL (0.52-1.25); GLUCOSE 177 mg/dL (75-110); POTASSIUM 3.5 mmol/L (3.6-5.0); SODIUM 138.9 mmol/L (137-145)
[2017-10-07] MEDS: ACETAMINOPHEN 325 MG TABLET PO PRN (15:59)
[2017-10-07] MEDS ORDERED: INSULIN LISPRO 100 UNIT/ML 3 ML VIAL SUBCUT SCH (16:00)
[2017-10-07 19:12] LABS: ANION GAP 17 (5-19); BLOOD UREA NITROGEN 17 mg/dL (7-20); CALCIUM 9.4 mg/dL (8.4-10.2); CARBON DIOXIDE 21 mmol/L (22-30); CHLORIDE 99 mmol/L (98-107); CREATININE RESULT 0.82 mg/dL (0.52-1.25); GLUCOSE 344 mg/dL (75-110); POTASSIUM 3.4 mmol/L (3.6-5.0)
[2017-10-07] MEDS: ATORVASTATIN CALCIUM 10 MG TABLET PO SCH (22:48)
[2017-10-07 23:10] LABS: ANION GAP 16 (5-19); BLOOD UREA NITROGEN 16 mg/dL (7-20); CALCIUM 9.4 mg/dL (8.4-10.2); CARBON DIOXIDE 23 mmol/L (22-30); CHLORIDE 100 mmol/L (98-107); CREATININE RESULT 0.79 mg/dL (0.52-1.25); GLUCOSE 300 mg/dL (75-110); POTASSIUM 3.2 mmol/L (3.6-5.0); SODIUM 138.6 mmol/L (137-145)
[2017-10-08 03:35] LABS: ANION GAP 17 (5-19); BLOOD UREA NITROGEN 15 mg/dL (7-20); CARBON DIOXIDE 24 mmol/L (22-30); CHLORIDE 102 mmol/L (98-107); CREATININE RESULT 0.77 mg/dL (0.52-1.25); GLUCOSE 165 mg/dL (75-110); SODIUM 142.6 mmol/L (137-145)
[2017-10-08 03:40] LABS: POTASSIUM 2.8 mmol/L (3.6-5.0)
[2017-10-08] MEDS ORDERED: POTASSIUM CHLORIDE 10 MEQ TABLET.SA PO ONE ×2 (03:55→04:04)
[2017-10-08] MEDS ORDERED: POTASSI CL 20 MEQ/50 ML RIDER 20 MEQ/50 ML RTUPB IV ONE (03:58)
[2017-10-08] MEDS: POTASSI CL 20 MEQ/50 ML RIDER 20 MEQ/50 ML RTUPB IV SCH ×2 (04:22→05:55)
[2017-10-08] MEDS: INSULIN LISPRO 100 UNIT/ML 3 ML VIAL SUBCUT PRN (07:42)
[2017-10-08] MEDS: PHOSPHORUS #1 250 MG TABLET PO SCH (07:42)
[2017-10-08 07:59] LABS: ANION GAP 16 (5-19); BLOOD UREA NITROGEN 15 mg/dL (7-20); CALCIUM 9.4 mg/dL (8.4-10.2); CARBON DIOXIDE 21 mmol/L (22-30); CHLORIDE 102 mmol/L (98-107); CREATININE RESULT 0.77 mg/dL (0.52-1.25); GLUCOSE 205 mg/dL (75-110); SODIUM 139.3 mmol/L (137-145)
[2017-10-08] MEDS ORDERED: INSULIN LISPRO 100 UNIT/ML 3 ML VIAL SUBCUT SCH ×2 (08:00→16:00)
[2017-10-08 08:11] LABS: POTASSIUM 4.2 mmol/L (3.6-5.0)
[2017-10-08] MEDS: INSULIN GLARGINE,HUM.REC.ANLOG 1,000 UNIT/10 ML UNIT SUBCUT SCH (08:53)
[2017-10-08] MEDS: FAMOTIDINE 20 MG TABLET PO SCH (09:16)
[2017-10-08] MEDS: LISINOPRIL 10 MG TABLET PO SCH (09:17)
[2017-10-08] MEDS: METOPROLOL TARTRATE 25 MG TABLET PO SCH (09:17)
[2017-10-08 11:39] LABS: ANION GAP 14 (5-19); BLOOD UREA NITROGEN 18 mg/dL (7-20); CALCIUM 9.9 mg/dL (8.4-10.2); CARBON DIOXIDE 23 mmol/L (22-30); CHLORIDE 105 mmol/L (98-107); CREATININE RESULT 0.81 mg/dL (0.52-1.25); GLUCOSE 233 mg/dL (75-110); POTASSIUM 4.3 mmol/L (3.6-5.0); SODIUM 141.9 mmol/L (137-145)
[2017-10-08 13:37] VITALS: BP 139/78
[2017-10-08] MEDS ORDERED: INSULIN LISPRO 100 UNIT/ML 3 ML VIAL SUBCUT ONE (14:00)
--- NOTE | 2017-10-08 14:03 | PDOC DISCHARGE SUMMARY ---
General - Admit/Disc Date/PCP Admission Date/Primary Care Provider: 10/05/17 18:28 Discharge Date: 10/08/17 - Discharge Diagnosis (1) DKA (diabetic ketoacidoses) Is this a current diagnosis for this admission?: Yes Summary: Pt was admitted for DKA which was thought to be Secondary to DM Type 2. Pt was placed on insulin drip. Pt was given IVF and electrolyte replacement. Pt was transitioned to SC insulin. (2) Dehydration Is this a current diagnosis for this admission?: Yes Summary: Pt was given IVFs which resolved during hospitalization. (3) Acute renal injury due to hypovolemia Is this a current diagnosis for this admission?: Yes Summary: Resolved. (4) Hypernatremia Is this a current diagnosis for this admission?: Yes Summary: Resolved with IVFs. (5) Hypertension Is this a current diagnosis for this admission?: Yes Summary: Will continue Metoprolol and Lisinopril (6) Metabolic acidosis Is this a current diagnosis for this admission?: Yes Summary: Secondary to DKA: Resolved. (7) Elevated LFTs Is this a current diagnosis for this admission?: Yes Summary: Secondary to Fatty Liver Disease: Recommended diet (8) Obesity (BMI 30.0-34.9) Is this a current diagnosis for this admission?: Yes Summary: Encourage dietary changes. (9) Hyperlipidemia Is this a current diagnosis for this admission?: Yes Summary: Statin - Additional Information Discharge Diet: Cardiac, Diabetic Discharge Activity: Activity As Tolerated Home Medications: Hum Insulin NPH/Reg Insulin Hm [Insulin Inj 70-30 (100 Unit/1 ml) 3 ml Vial] 32 unit SUBCUT QHS #10 ml 10/08/17 Hum Insulin NPH/Reg Insulin Hm [Insulin Inj 70-30 (100 Unit/1 ml) 3 ml Vial] 63 unit SUBCUT QAM #10 ml 10/08/17 Insulin Regular, Human [Novolin R] 100 unit IJ PRN PRN #1 vial 10/08/17 Lisinopril [Prinivil 10 mg Tablet] 20 mg PO DAILY #30 tablet 10/08/17 Metoprolol Tartrate [Lopressor 25 mg Tablet] 12.5 mg PO Q12 #30 tablet 10/08/17 Pravastatin Sodium 10 mg PO QHS #30 tablet 10/08/17 History of Present Illness History of Present Illness: ANAIS EDUARDO is a 27 year old male presents with fatigue for several days. Pt states that he has had poor appetite for several days. Pt states that he has been thirsty and drinking more. Pt states that his mouth has been dry. Pt states that he has not been urinating much. Pt denies chest pain, shortness of breath. Pt does admit to fever. Hospital Course Hospital Course: Pt was admitted to the hospital for DKA. Pt was placed on IVFs and insulin drip. Pt was transitioned to SC insulin once acidosis resolved. Pt was found that have elevated cholesterol, elevated BP, and obese. Pt was placed on statin , Lisinopril, Metoprolol, and encouraged to make dietary changes. Pt had C- peptide checked but was pending at discharge. Physical Exam Vital Signs: Temp Pulse Resp BP Pulse Ox 98.4 F 107 H 16 136/89 H 97 10/08/17 11:48 10/08/17 11:48 10/08/17 11:48 10/08/17 11:48 10/08/17 11:48 Intake & Output 10/07/17 10/08/17 10/09/17 06:59 06:59 06:59 Intake Total 1660 1952 340 Balance 1660 1951 340 Weight 89.6 kg 89 kg General appearance: PRESENT: no acute distress, well-developed, well-nourished Head exam: PRESENT: atraumatic, normocephalic Eye exam: PRESENT: conjunctiva pink, EOMI, PERRLA. ABSENT: scleral icterus Ear exam: PRESENT: normal external ear exam Mouth exam: PRESENT: moist, tongue midline Neck exam: ABSENT: carotid bruit, JVD, lymphadenopathy, thyromegaly Respiratory exam: PRESENT: clear to auscultation heraclio. ABSENT: rales, rhonchi, wheezes Cardiovascular exam: PRESENT: RRR. ABSENT: diastolic murmur, rubs, systolic murmur Pulses: PRESENT: normal dorsalis pedis pul Vascular exam: PRESENT: normal capillary refill GI/Abdominal exam: PRESENT: normal bowel sounds, soft. ABSENT: distended, guarding, mass, organolmegaly, rebound, tenderness Rectal exam: PRESENT: deferred Neurological exam: PRESENT: alert, awake, oriented to person, oriented to place , oriented to time, oriented to situation, CN II-XII grossly intact. ABSENT: motor sensory deficit Psychiatric exam: PRESENT: appropriate affect, normal mood. ABSENT: homicidal ideation, suicidal ideation Skin exam: PRESENT: dry, intact, warm. ABSENT: cyanosis, rash Results Laboratory Results: 10/06/17 06:45 10/08/17 10:53 10/07/17 10/07/17 10/07/17 14:36 18:30 22:42 Sodium 138.9 137.0 138.6 Potassium 3.5 L 3.4 L 3.2 L Chloride 103 99 100 Carbon Dioxide 19 L 21 L 23 Anion Gap 17 17 16 BUN 18 17 16 Creatinine 0.94 0.82 0.79 Est GFR ( Amer) > 60 > 60 > 60 Est GFR (Non-Af Amer) > 60 > 60 > 60 Glucose 177 H 344 H 300 H Calcium 9.5 9.4 9.4 Magnesium 10/08/17 10/08/17 10/08/17 02:54 02:54 07:10 Sodium 142.6 139.3 Potassium 2.8 L* 4.2 D Chloride 102 102 Carbon Dioxide 24 21 L Anion Gap 17 16 BUN 15 15 Creatinine 0.77 0.77 Est GFR ( Amer) > 60 > 60 Est GFR (Non-Af Amer) > 60 > 60 Glucose 165 H 205 H Calcium 9.0 9.4 Magnesium 2.1 10/08/17 10:53 Sodium 141.9 Potassium 4.3 Chloride 105 Carbon Dioxide 23 Anion Gap 14 BUN 18 Creatinine 0.81 Est GFR ( Amer) > 60 Est GFR (Non-Af Amer) > 60 Glucose 233 H Calcium 9.9 Magnesium 10/05/17 21:25 Clean Catch Midstream Urine Culture - Final NO GROWTH 2 DAYS 10/06/17 07:01 Creatine Kinase 372 H Impressions: Abdomen Ultrasound 10/06/17 00:00 IMPRESSION: Normal size liver with diffuse increased echogenicity from fatty infiltration. Plan Time Spent: Greater than 30 Minutes
[2017-10-09] MEDS ORDERED: INSULIN GLARGINE,HUM.REC.ANLOG 1,000 UNIT/10 ML UNIT SUBCUT SCH (08:00)
== END 2017-10-08 13:55 | disposition home or self-care (01) | DRG 638 ==
LOC: ER 14:55 → EH 18:28 → 3N 20:55
PROVIDERS: ADMIT Emergency Medicine; ATTEND Emergency Medicine
DX: E11.10 Type 2 diabetes mellitus with ketoacidosis without coma (principal); N17.9 Acute kidney failure, unspecified; E87.0 Hyperosmolality and hypernatremia; E86.1 Hypovolemia; E87.6 Hypokalemia; E86.0 Dehydration; J45.998 Other asthma; E78.5 Hyperlipidemia, unspecified; I10 Essential (primary) hypertension; R74.8 Abnormal levels of other serum enzymes; E66.9 Obesity, unspecified; Z68.31 Body mass index [BMI] 31.0-31.9, adult
CPT/HCPCS: 36415; 76700; 80048; 80053; 80061; 80074; 80076; 81001; 82550; 82803; 82962; 83036; 83690; 83735; 84100; 84439; 84443; 84681; 85025; 85027; 87040; 87086; 93005; 93010; 96361; 96374; 99291; J1815; J2405; J3480; J7030; S0028; S0119

== ENCOUNTER 2020-04-19 18:31 | Emergency (ER) | payer SELFPAY ==
[2020-04-19 19:17] VITALS: BP 172/106
--- NOTE | 2020-04-19 21:58 | ER Document Report ---
ED ENT - General Chief Complaint: Ear Pain Stated Complaint: RIGHT EAR PAIN, FEELS "CLOGGED" Time Seen by Provider: 04/19/20 19:29 Mode of Arrival: Ambulatory Information source: Patient Notes: Patient is a 29-year-old male comes emergency room complaining of right ear pain. Patient states that it has been clogged or feels like is been clogged for the last 24 hours. He is never had any problems in the past he went to the pharmacy and got some type of drops but it does not seem to help. 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 He has a history of hypertension and diabetes. And he smokes 1 pack cigarettes a day. Patient denies any swimming or any known trauma. He states he has not stuck anything in his ear besides the drops. He has complained of some congestion and runny nose. TRAVEL OUTSIDE OF THE [place] IN LAST 30 DAYS: No - HPI Patient complains to provider of: Ear problem, Nose problem Onset: Yesterday Onset/Duration: Gradual, Worse Quality of pain: Achy, Sharp Severity: Moderate Pain Level: 3 Context: denies: Allergies, Injury, Recent Illness, Travel Location of pain: Ears, Nose Associated symptoms: Ear pain, Sinus pain. denies: Ear drainage, Ear trauma Similar symptoms previously: No Recently seen / treated by doctor: No - Related Data Allergies/Adverse Reactions: No Known Allergies Allergy (Verified 04/19/20 19:31) Home Medications: insulin, amlodipine Past Medical History - General Information source: Patient - Social History Smoking Status: Never Smoker Chew tobacco use (# tins/day): No Frequency of alcohol use: None Drug Abuse: None Family History: Reviewed & Not Pertinent Patient has homicidal ideation: No - Past Medical History Cardiac Medical History: Reports: Hx Hypertension Pulmonary Medical History: Reports: Hx Asthma Endocrine Medical History: Reports: Hx Diabetes Mellitus Type 2 Renal/ Medical History: Denies: Hx Peritoneal Dialysis - Immunizations Hx Diphtheria, Pertussis, Tetanus Vaccination: Yes Review of Systems - Review of Systems Constitutional: No symptoms reported EENT: Ear pain, Nose congestion Cardiovascular: No symptoms reported Respiratory: No symptoms reported Gastrointestinal: No symptoms reported Genitourinary: No symptoms reported Male Genitourinary: No symptoms reported Musculoskeletal: No symptoms reported Skin: No symptoms reported Hematologic/Lymphatic: No symptoms reported Neurological/Psychological: No symptoms reported -: Yes All other systems reviewed and negative Physical Exam - Vital signs Vitals: Temp Pulse Resp BP Pulse Ox 98.6 F 75 15 172/106 H 99 04/19/20 19:15 04/19/20 19:15 04/19/20 19:15 04/19/20 19:15 04/19/20 19:15 Interpretation: Hypertensive Notes: PHYSICAL EXAMINATION: GENERAL: Patient is a well-nourished well-developed 29-year-old male who is in no apparent distress on physical exam tonight. He does appear somewhat uncomfortable. HEAD: Atraumatic, normocephalic. EYES: Pupils equal round and reactive to light, extraocular movements intact, sclera anicteric, conjunctiva are normal. ENT: Examination patient's had no upper airway showed nasal mucosa be mildly erythematous edematous with some rhinorrhea noted. Also noted is bilateral nasal congestion. Examination patient's TMs show that the left side appears fairly clear external canal is clean TM is bulging slightly but no fluid levels are seen. Examination of his right ear meteor area of complaint shows patient has some moderate erythema throughout the external canal there appears to be a whitish discharge in the surrounding tissue of the external canal that almost appears fungal. Does have slightly smell to it that could be also Pseudomonas. Further examination shows that the right TM is bulging with a serous fluid behind it. The surrounding TM borders show moderate erythema as well. The ear on the side looks very angry. Further evaluation of the posterior pharynx does show that there is some mild drainage in the posterior pharynx that is yellowish in color. NECK: Normal range of motion, supple without lymphadenopathy LUNGS: Breath sounds clear to auscultation bilaterally and equal. No wheezes rales or rhonchi. HEART: Regular rate and rhythm without murmurs NEUROLOGICAL:. Normal speech, normal gait. Normal sensory, motor exams PSYCH: Normal mood, normal affect. SKIN: Warm, Dry, normal turgor, no rashes or lesions noted. Course - Re-evaluation Re-evalutation: 04/20/20 00:40 Patient had such occlusion of the right TM with appeared to be a Pseudomonas or fungal presentation that I decided going to flush it out. I used some warm water and a 20 mL syringe with a 14-gauge cath on and flushed his ear out to get the debris out. I used approximately 60 mL's to flush. And at that point I reexamined the ear and it was 95% clear the rest was not an issue. The TM as stated was angry appearing still there was no evidence of TM rupture. The fluid level behind the TM was still noticeable with moderate erythema surrounding the borders of the TM. Patient also had some moderate sinus congestion so we will treat that as well. - Vital Signs Vital signs: Temp Pulse Resp BP Pulse Ox 98.6 F 75 15 172/106 H 99 04/19/20 19:26 04/19/20 19:15 04/19/20 19:15 04/19/20 19:15 04/19/20 19:15 Discharge - Discharge Clinical Impression: Otitis externa Qualifiers: Otitis externa type: unspecified type Chronicity: acute Laterality: right Qualified Code(s): H60.501 - Unspecified acute noninfective otitis externa, right ear Otitis media Qualifiers: Otitis media type: unspecified Chronicity: acute Qualified Code(s): H66.90 - Otitis media, unspecified, unspecified ear Disposition: HOME, SELF-CARE Instructions: Use of Ear Drops ([facility]), Otitis Externa ([facility]), Serous Otitis Media ([facility]) Additional Instructions: Home and use the drops as prescribed. Also you have an inner ear infection as well is very full and fluid and you have a bulging membrane. Highly suggest you finish all the antibiotics. You still need to use the drops on this year since there are 2 infections in external and internal also placed you on an antihistamine. Highly suggest that you follow-up with your primary care provider within the next 5 to 7 days. Should you have any concerns or problems goes return to ER for reevaluation. Prescriptions: Amoxicillin/Potassium Clav [Augmentin 875-125 Tablet] 1 tab PO Q12 #20 tablet Chlorpheniramine Maleate [Chlor-Trimeton 4 Mg Tablet] 4 mg PO BID #20 tablet Ofloxacin [Floxin 0.3% Otic Drops 5 Ml] 4 drop OT BID 7 Days #1 bottle
== END 2020-04-19 22:07 | disposition home or self-care (01) ==
LOC: ER 18:31
DX: H60.501 Unspecified acute noninfective otitis externa, right ear (principal); R09.81 Nasal congestion; H92.01 Otalgia, right ear; J34.89 Other specified disorders of nose and nasal sinuses; E11.9 Type 2 diabetes mellitus without complications; I10 Essential (primary) hypertension; F17.210 Nicotine dependence, cigarettes, uncomplicated; Z79.4 Long term (current) use of insulin; Z79.899 Other long term (current) drug therapy
CPT/HCPCS: 99282